=== PATIENT | male | born 1960 | race Caucasian/White ===

== ENCOUNTER 2021-02-21 14:21 | Inpatient (IN) | payer OTHER ==
[~2021-02-21] VITALS: Ht 172.7 cm; Wt 63.5 kg
[2021-02-21] MEDS ORDERED: ASPIRIN 325 MG TABLET PO ONE (15:00)
--- NOTE | 2021-02-21 15:08 | NUR ---
BIB [facility] FROM HOME,C/O RIGHT SIDED CHEST PAIN,ADMIT TO DRINKING ALCOHOL AND SMOKING WEED ALL DAY. THE PATIENT RATES PAIN 6/10. DOES NOT SPECIFY CHEST PAIN START TIME. THE PATIENT IS ALERT AND ORIENTED X2. RESPIRATION REGULAR AND UNLABORED. ATTACHED TO THE MONITOR.
[2021-02-21 15:12] LABS: BASOPHILS # (AUTO) 0.1 K/uL (0.0-0.2); CALCIUM, SERUM 9.8 mg/dL (8.5-10.1); CARBON DIOXIDE 25 mmol/L (21-32); CHLORIDE 107 mmol/L (98-107); EOSINOPHILS % (AUTO) 0.3 % (0.0-6.0); GLUCOSE 85 mg/dL (74-106); HEMATOCRIT 43 % (39-51); HEMOGLOBIN 14.2 g/dL (13.5-17.5); LYMPHOCYTES # (AUTO) 1.4 K/uL (0.8-4.8); LYMPHOCYTES % (AUTO) 11.4 % (20.0-44.0); MEAN CORPUSCULAR HGB CONC 33 g/dl (31.0-36.0); MEAN CORPUSCULAR VOLUME 98 fL (80-96); MONOCYTES % (AUTO) 8.3 % (2.0-12.0); PLATELET COUNT (AUTO) 364 K/uL (150-450); POTASSIUM 4.3 mmol/L (3.5-5.1); RED BLOOD CELL COUNT(AUTO) 4.42 MIL/uL (4.5-6.0); SODIUM SERUM 144 mmol/L (136-145); UREA NITROGEN, BLOOD 16 mg/dL (7-18); WHITE BLOOD COUNT (AUTO) 12.6 K/uL (4.3-11.0)
[2021-02-21] MEDS ORDERED: ASPIRIN 325 MG TABLET ONE (15:27)
--- NOTE | 2021-02-21 17:46 | NUR ---
[facility] CALLED CALL WORKER PERSON PAGED.
--- NOTE | 2021-02-21 19:06 | NUR ---
CHARGE AIDE NOTES RECEIVED NEW ADMIT FROM ER PER RAZ THIS 61 YO MALE,ALERT,ORIENTED X4,WITH CHIEF COMPLAINTS OF RIGHT SIDE CHEST PAIN,NONE UPON ARRIVAL ON THE UNIT.BREATHING REGULAR,NOT IN ANY FORM DISTRESS.SALINE LOCK RIGHT AC #18 INTACT AND PATENT.AMBULATORY.NOTED SKIN PATCHY REDNESS ON BOTH ARMS,PROMINENT ON LEFT ARM,NO ITCHY STARTED TWO WEEKS AGO, AND BEING TREATED WITH CREAM,PATIENT DONT REMEMBER THE NAME.CALL LIGHT IN REACH,NEEDS ANTICIPATED.
--- NOTE | 2021-02-21 19:10 | NUR ---
REPORT GIVEN TO NURSE FRANKLIN
--- NOTE | 2021-02-21 19:10 | NUR ---
THE PATIENT IS TRANSFERED TO [facility] IN STABLE CONDITION AND PER ACLS POLICY.
--- NOTE | 2021-02-21 19:15 | NUR ---
RN NOTES PATIENT TRANSFERRED TO UNIT AT ROOM 313-1 VIA GURNEY, ACCOMPANIED BY 1 FACTORY LAY OUT ENGINEER. ORIENTED PATIENT TO ROOM AND USE OF CALL LIGHT BUTTON FOR STAFF ASSISTANCE. BEDSIDE ENDORSEMENT GIVEN TO PERINATAL EDUCATOR RN FOR RAJ.
[2021-02-21] MEDS ORDERED: ZOLPIDEM TARTRATE 5 MG TABLET PO PRN (19:30)
[2021-02-21] MEDS ORDERED: MAGNESIUM HYDROXIDE 30 ML UDC PO PRN (19:30)
[2021-02-21] MEDS ORDERED: ACETAMINOPHEN 325 MG TABLET PO PRN (19:30)
[2021-02-21] MEDS ORDERED: ONDANSETRON HCL/PF 4 MG/2 ML VIAL IVP PRN (19:30)
[2021-02-21] MEDS ORDERED: Z GUARD REMEDY 2 OZ OINT TP PRN (19:30)
[2021-02-21 20:00] VITALS: BP 135/71
[2021-02-21] MEDS ORDERED: ATORVASTATIN 10 MG TABLET PO SCH (22:00)
[2021-02-22] VITALS: BP 136/69
--- NOTE | 2021-02-22 03:42 | NUR ---
TECHNICAL ACCOUNT EXECUTIVE NOTES AWAKE,C/O HEADACHE,TYLENOL 650MG PO GIVEN ORDERED.
--- NOTE | 2021-02-22 03:45 | NUR ---
CHIEF GREEN OFFICER NOTES PATIENT VERBALIZED " I WISH I'M ',BUT NO PLAN TO HARM HIMSELF.HAVING SAID THAT,SUICIDAL IDEATION PROTOCOL INITIATED.FREQUENT ROUNDING Q 15 MINUTE INITIATED.CHARGE NURSE SARIAH MADE AWARE,ALSO THE NURSING ROTARY DRIER OPERATOR FOR SITTER THIS MORNING.
[2021-02-22 04:00] VITALS: BP 120/74
--- NOTE | 2021-02-22 04:20 | NUR ---
SINK MAKER NOTES HOSPITALIST SANDRA MADE AWARE,WITH NEW ORDER NOTED AND CARRIED OUT.
[2021-02-22 06:09] LABS: BASOPHILS # (AUTO) 0.1 K/uL (0.0-0.2); BASOPHILS % (AUTO) 0.8 % (0.0-2.0); EOSINOPHILS % (AUTO) 2.5 % (0.0-6.0); HEMATOCRIT 42 % (39-51); LYMPHOCYTES # (AUTO) 1.3 K/uL (0.8-4.8); LYMPHOCYTES % (AUTO) 18.8 % (20.0-44.0); MEAN CORPUSCULAR HGB CONC 34 g/dl (31.0-36.0); MEAN CORPUSCULAR VOLUME 97 fL (80-96); MONOCYTES # (AUTO) 0.7 K/uL (0.1-1.30); MONOCYTES % (AUTO) 9.9 % (2.0-12.0); NEUTROPHILS # (AUTO) 4.6 K/uL (1.8-8.9); PLATELET COUNT (AUTO) 303 K/uL (150-450); RED BLOOD CELL COUNT(AUTO) 4.28 MIL/uL (4.5-6.0); WHITE BLOOD COUNT (AUTO) 6.8 K/uL (4.3-11.0)
--- NOTE | 2021-02-22 06:39 | NUR ---
LIDAR SCIENTIST NOTES SLEPT WITH INTERVALS,SCREAMS,VERBALIZED ' IM NOT GONNA KILL MYSELF'.FOR PSYCHE CONSULT DUE TO SUICIDAL IDEATION,SITTER FOR SAFETY.WILL ENDORSE TO DAY NURSE FOR RAJ.
[2021-02-22 07:07] LABS: CALCIUM, SERUM 9.2 mg/dL (8.5-10.1); CREATININE 0.9 mg/dL (0.6-1.3); PHOSPHORUS 3.9 mg/dL (2.5-4.9); POTASSIUM 3.6 mmol/L (3.5-5.1)
--- NOTE | 2021-02-22 07:30 | NUR ---
HELIUM ARC WELDER OPENING NOTE RECEIVED PT AWAKE IN BED. A/O X3 WITH PERIODS OF CONFUSION. PT IS STABLE ON ROOM AIR WITH NO SOB OR S/S OF RESPIRATORY DISTRESS NOTED. PT ON EXTERNAL RELAY WORKER READING SR 77. PT HAS NO C/O PAIN OR DISCOMFORT AT THIS TIME. IV ACCESS IN RIGHT HAND #22, INTACT AND PATENT. SAFETY PRECAUTIONS MAINTAINED. BED IN LOWEST LOCKED POSITION, HOB ELEVATED, SIDE RAILS UP X2. BED ALARM ON. CALL LIGHT AND TABLE WITHIN REACH. WILL CONTINUE TO MONITOR.
[2021-02-22 08:00] VITALS: BP 125/85
--- NOTE | 2021-02-22 08:40 | NUR ---
RN NOTE PT C/O SEVERE ANXIETY AND OBSERVED PT WITH FREQUENT SCREAMING EPISODES TOWARDS STAFF. RECEIVED ORDERS FROM ANNE SONI TO ADMINISTER ATIVAN 2MG IV ONCE. ORDERS READ BACK, ENTERED, AND CARRIED OUT. WILL CONTINUE TO MONITOR PT CLOSELY.
[2021-02-22] MEDS ORDERED: ASPIRIN 81 MG TAB.CHEW PO SCH (09:00)
[2021-02-22] MEDS ORDERED: LORAZEPAM INJ 2 MG/ML VIAL IV ONE (09:00)
--- NOTE | 2021-02-22 11:00 | NUR ---
MS APARTMENT ASSISTANT MANAGER NOTE PT DISCHARGED HOME WITH SELF CARE AT THIS TIME. PT IS MEDICALLY STABLE AND CLEARED FOR DISCHARGE BY ANNE SONI. ALL PT CARE, NEEDS, MEDICATIONS, AND TREATMENT ADMINISTERED PER ORDER. DISCHARGE INSTRUCTIONS PROVIDED TO PT. PT VERBALIZED UNDERSTANDING. PT KEPT CLEAN AND DRY. IV ACCESS REMOVED, PRESSURE APPLIED, AND SECURED AND GAUZE AND TAPE. NO SIGNS OF BLEEDING NOTED. ID BAND REMOVED. PT ACCOMPANIED TO LOBBY BY TAI SIMS. CHARGE NURSE BENNY AND ANNE SONI AWARE.
--- NOTE | 2021-02-22 12:05 | NUR ---
SS consult requested for substance abuse. However, pt. has departed.
== END 2021-02-22 10:55 | disposition home or self-care (01) | DRG 203 ==
LOC: ER 14:26 → TELE 18:31 → MED 02-22 10:06
PROVIDERS: ADMIT Nurse Practitioner Acute Care; ATTEND Nurse Practitioner Acute Care
DX: M94.0 Chondrocostal junction syndrome [Tietze] (principal); D72.829 Elevated white blood cell count, unspecified; I10 Essential (primary) hypertension; F17.200 Nicotine dependence, unspecified, uncomplicated; Z72.89 Other problems related to lifestyle; Z20.822 Contact with and (suspected) exposure to COVID-19; F12.90 Cannabis use, unspecified, uncomplicated
CPT/HCPCS: 36415; 71045-TC; 80048-TC; 80061-TC; 83735-TC; 84100-TC; 84484-TC; 85025-TC; 87081-TC; 93307-TC; C9803; G0378; J2060